=== PATIENT | female | born 1985 | race Hispanic/Latino ===

== ENCOUNTER 2017-07-14 02:44 | Emergency (ER) | payer BC, SELFPAY ==
[2017-07-14] MEDS ORDERED: HYDROcodone/Acetaminophen 5/325 mg Tablet ONE ×2 (03:02→05:46)
[2017-07-14] MEDS ORDERED: Lidocaine 1% (PF) 30 ML VIAL ONE (05:47)
[2017-07-14] MEDS ORDERED: Adacel (T-DAP) 0.5 ML VIAL ONE (07:39)
[2017-07-14] MEDS ORDERED: Bacitracin Zinc 1 Packet ONE (07:46)
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
== END 2017-07-14 08:23 | disposition home or self-care (01) ==
LOC: ERS 02:44
DX: S01.01XA Laceration without foreign body of scalp, initial encounter (principal); Y04.0XXA Assault by unarmed brawl or fight, initial encounter
CPT/HCPCS: 12002; 70450; 72125; 81025; 90471; 90715; J2001

== ENCOUNTER 2017-07-29 18:40 | Emergency (ER) | payer SELFPAY | END 2017-07-29 22:40 | disposition left against medical advice (07) | LOC: ERS 18:40 | DX: Z53.21 Procedure and treatment not carried out due to patient leaving prior to being seen by health care provider (principal) ==

== ENCOUNTER 2017-12-04 12:18 | Emergency (ER) | payer SELFPAY ==
[2017-12-04] MEDS ORDERED: Ketorolac Tromethamine 30 MG/ML VIAL ONE (13:26)
[2017-12-04] MEDS ORDERED: Cyclobenzaprine 10 MG TAB ONE (13:26)
== END 2017-12-04 13:53 | disposition home or self-care (01) ==
LOC: ERS 12:18
DX: M54.2 Cervicalgia (principal); Z87.891 Personal history of nicotine dependence
CPT/HCPCS: 96372; J1885

== ENCOUNTER 2018-02-01 09:15 | Emergency (ER) | payer SELFPAY ==
[2018-02-01] MEDS ORDERED: Ibuprofen 800 MG TAB ONE (09:37)
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
== END 2018-02-01 10:29 | disposition home or self-care (01) ==
LOC: ERS 09:15
DX: S93.401A Sprain of unspecified ligament of right ankle, initial encounter (principal); Z87.891 Personal history of nicotine dependence; W10.9XXA Fall (on) (from) unspecified stairs and steps, initial encounter
CPT/HCPCS: 29125

== ENCOUNTER 2018-05-16 09:31 | Emergency (ER) | payer SELFPAY | END 2018-05-16 10:11 | disposition home or self-care (01) | LOC: ERS 09:31 | DX: J06.9 Acute upper respiratory infection, unspecified (principal) | CPT/HCPCS: 99282 ==

== ENCOUNTER 2018-06-16 08:55 | Emergency (ER) | payer OTHER, SELFPAY ==
[2018-06-16 09:51] LABS: #Basophils 0.1 thou/uL (0.0-0.2); #Eosinphils 0.4 thou/uL (0.0-0.7); #Lymphocytes 3.8 thou/uL (1.20-3.40); #Monocytes 0.6 thou/uL (0.11-0.59); #Neutrophils 5.7 thou/uL (1.40-6.50); %Basophils 1.2 % (0.0-1.0); %Eosinophils 3.9 % (0.0-10.0); %Lymphocytes 35.7 % (21.0-51.0); %Monocytes 5.7 % (0.0-10.0); %Neutrophils 53.5 % (42.0-75.0); Hemoglobin 13.5 g/dL (12.0-16.0); Mean Corpuscular HGB CONC 32.7 g/dL (32.0-36.0); Mean Corpuscular Hemoglobin 29.3 pg (27.0-31.0); Mean Corpuscular Volume 89.5 fL (78.0-98.0); Mean Platelet Volume 8.3 fL (7.4-10.4); Platelet Count 371 thou/uL (130-400); Red Blood Cell (RBC) Count 4.61 mill/uL (4.20-5.40); White Blood Cell (WBC) Count 10.7 thou/uL (4.8-10.8)
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
[2018-06-16] MEDS ORDERED: Acetaminophen 500 MG TAB ONE (10:08)
[2018-06-16 10:11] LABS: BHCG - Serum Negative (NEGATIVE); Pregs Control Background? CLEAR/WHITE (CLR/WHITE); Pregs Control Bar Appear? YES (CONTROL BAR)
[2018-06-16 10:13] LABS: ALT (SGPT) 36 U/L (8-55); AST (SGOT) 16 U/L (5-34); Albumin 4.4 g/dL (3.5-5.0); Alkaline Phosphatase 97 U/L (40-150); Anion Gap 14 mmol/L (10-20); BUN (Urea Nitrogen) 10 mg/dL (7.0-18.7); Bilirubin, Total 0.2 mg/dL (0.2-1.2); Calc. Creatinine Clearance 0 mL/min (70-130); Calcium 9.5 mg/dL (7.8-10.44); Carbon Dioxide 20 mmol/L (22-29); Chloride 105 mmol/L (98-107); Estimated GFR-MDRD Greater than 90; Globulin 3.2 g/dL (2.4-3.5); Glucose 106 mg/dL (70-105); Potassium 3.9 mmol/L (3.5-5.1); Protein, Total 7.6 g/dL (6.0-8.3); Sodium 135 mmol/L (136-145)
[2018-06-16] MEDS ORDERED: Ketorolac Tromethamine 60 MG/2 ML VIAL ONE (10:16)
== END 2018-06-16 10:35 | disposition home or self-care (01) ==
LOC: ERS 08:55
DX: M54.2 Cervicalgia (principal); V89.2XXA Person injured in unspecified motor-vehicle accident, traffic, initial encounter
CPT/HCPCS: 36415; 70450; 71045; 72125; 80053; 84703; 85025; 96372; J1885

== ENCOUNTER 2018-10-17 10:50 | Emergency (ER) | payer SELFPAY | END 2018-10-17 11:52 | disposition home or self-care (01) | LOC: ERS 10:50 | DX: J06.9 Acute upper respiratory infection, unspecified (principal); H69.82 Other specified disorders of Eustachian tube, left ear | CPT/HCPCS: 99282 ==

== ENCOUNTER 2018-10-22 22:31 | Emergency (ER) | payer SELFPAY ==
[2018-10-22 23:27] LABS: #Basophils 0.1 thou/uL (0.0-0.2); #Eosinphils 0.4 thou/uL (0.0-0.7); #Lymphocytes 4.9 thou/uL (1.20-3.40); #Monocytes 0.8 thou/uL (0.11-0.59); #Neutrophils 4.2 thou/uL (1.40-6.50); %Basophils 0.5 % (0.0-1.0); %Eosinophils 3.8 % (0.0-10.0); %Lymphocytes 47.3 % (21.0-51.0); %Monocytes 7.7 % (0.0-10.0); %Neutrophils 40.7 % (42.0-75.0); Hemoglobin 12.5 g/dL (12.0-16.0); Mean Corpuscular HGB CONC 33.3 g/dL (32.0-36.0); Mean Corpuscular Hemoglobin 29.5 pg (27.0-31.0); Mean Corpuscular Volume 88.5 fL (78.0-98.0); Mean Platelet Volume 8.2 fL (7.4-10.4); Platelet Count 390 thou/uL (130-400); RBC Distribution Width 11.7 % (11.5-14.5); Red Blood Cell (RBC) Count 4.25 mill/uL (4.20-5.40); White Blood Cell (WBC) Count 10.3 thou/uL (4.8-10.8)
[2018-10-22 23:37] LABS: ALT (SGPT) 40 U/L (8-55); AST (SGOT) 24 U/L (5-34); Albumin 4.1 g/dL (3.5-5.0); Alkaline Phosphatase 90 U/L (40-150); Anion Gap 15 mmol/L (10-20); BUN (Urea Nitrogen) 9 mg/dL (7.0-18.7); Bilirubin, Total 0.2 mg/dL (0.2-1.2); Calc. Creatinine Clearance 0 mL/min (70-130); Calcium 9.2 mg/dL (7.8-10.44); Carbon Dioxide 25 mmol/L (22-29); Chloride 104 mmol/L (98-107); Estimated GFR-MDRD Greater than 90; Globulin 3.1 g/dL (2.4-3.5); Glucose 121 mg/dL (70-105); Potassium 3.6 mmol/L (3.5-5.1); Protein, Total 7.2 g/dL (6.0-8.3); Sodium 140 mmol/L (136-145)
== END 2018-10-23 00:19 | disposition home or self-care (01) ==
LOC: ERS 22:31
DX: J06.9 Acute upper respiratory infection, unspecified (principal); R04.0 Epistaxis; R11.10 Vomiting, unspecified
CPT/HCPCS: 36415; 80053; 85025; 99283

== ENCOUNTER 2018-11-04 21:37 | Emergency (ER) | payer SELFPAY ==
--- NOTE | 2018-11-04 22:06 | RAD ---
FEXAM: Right hand radiographs 3 views PROVIDED CLINICAL HISTORY: Pain FINDINGS: Comparison 07/14/2017. There is no evidence for fracture or other acute osseous abnormality. Alignmen t appears anatomic. Joint spaces appear preserved. Stable appearance of fifth metacarpal likely seque la of prior trauma. IMPRESSION: No evidence for an acute osseous abnormality. If there is persistent clinical concern, conservative m anagement and follow-up imaging advised.
== END 2018-11-04 22:19 | disposition home or self-care (01) ==
LOC: ERS 21:37
DX: M65.4 Radial styloid tenosynovitis [de Quervain] (principal)

== ENCOUNTER 2018-11-30 08:00 | Emergency (ER) | payer SELFPAY | END 2018-11-30 08:30 | disposition home or self-care (01) | LOC: ERS 08:00 | DX: R21 Rash and other nonspecific skin eruption (principal) | CPT/HCPCS: 99282 ==

== ENCOUNTER 2019-04-14 21:29 | Emergency (ER) | payer SELFPAY ==
[2019-04-14] MEDS ORDERED: Ondansetron ODT 8 MG TAB ONE (21:59)
== END 2019-04-14 22:06 | disposition home or self-care (01) ==
LOC: ERS 21:29
DX: R11.2 Nausea with vomiting, unspecified (principal); R19.7 Diarrhea, unspecified; F17.210 Nicotine dependence, cigarettes, uncomplicated
CPT/HCPCS: 99283

== ENCOUNTER 2019-07-06 12:36 | Emergency (ER) | payer OTHER, SELFPAY | END 2019-07-06 15:31 | disposition home or self-care (01) | LOC: ERS 12:36 | DX: J06.9 Acute upper respiratory infection, unspecified (principal) | CPT/HCPCS: 99283 ==

== ENCOUNTER 2020-05-18 09:16 | Emergency (ER) | payer OTHER, SELFPAY ==
[2020-05-18 19:04] LABS: SARS-CoV-2 MS2 Positive; SARS-CoV-2 N Gene Negative; SARS-CoV-2 S Gene Negative; SARS-CoV-2 by NAA Not Detected (NotDetected); SARS-CoV-2 orf1ab Negative
== END 2020-05-18 09:55 | disposition home or self-care (01) ==
LOC: ERS 09:16
DX: Z20.828 Contact with and (suspected) exposure to other viral communicable diseases (principal)
CPT/HCPCS: 87635; 99283; U0003

== ENCOUNTER 2021-02-04 03:10 | Emergency (ER) | payer OTHER, SELFPAY ==
[2021-02-04] MEDS ORDERED: Mag-Al 1200 mg/1200 mg/30 ML UDCUP ONE (03:30)
[2021-02-04] MEDS ORDERED: Lidocaine Viscous Sol 2% 15 ml UD Cup ONE (03:30)
[2021-02-04] MEDS ORDERED: Ondansetron PF 4 MG/2 ML Vial ONE ×2 (03:32→04:33)
[2021-02-04] MEDS ORDERED: Ondansetron ODT 4 MG TAB ONE (03:32)
[2021-02-04 03:56] LABS: #Basophils 0.1 thou/uL (0.0-0.2); #Eosinphils 0.4 thou/uL (0.0-0.7); #Lymphocytes 5.7 thou/uL (1.20-3.40); #Monocytes 0.9 thou/uL (0.11-0.59); #Neutrophils 9.2 thou/uL (1.40-6.50); %Basophils 0.7 % (0.0-1.0); %Eosinophils 2.3 % (0.0-10.0); %Monocytes 5.3 % (0.0-10.0); %Neutrophils 56.7 % (42.0-75.0); Hemoglobin 14.5 g/dL (12.0-16.0); Mean Corpuscular HGB CONC 35.2 g/dL (32.0-36.0); Mean Corpuscular Volume 88.2 fL (78.0-98.0); Mean Platelet Volume 8.7 fL (7.4-10.4); Platelet Count 367 thou/uL (130-400); RBC Distribution Width 11.7 % (11.5-14.5); Red Blood Cell (RBC) Count 4.67 mill/uL (4.20-5.40); White Blood Cell (WBC) Count 16.2 thou/uL (4.8-10.8)
[2021-02-04 04:20] LABS: ALT (SGPT) 222 U/L (8-55); AST (SGOT) 130 U/L (5-34); Albumin 4.3 g/dL (3.5-5.0); Alkaline Phosphatase 180 U/L (40-110); Anion Gap 17 mmol/L (10-20); BUN (Urea Nitrogen) 9 mg/dL (7.0-18.7); Bilirubin, Total 0.3 mg/dL (0.2-1.2); Calc. Creatinine Clearance 0 mL/min (70-130); Calcium 9.3 mg/dL (7.8-10.44); Carbon Dioxide 21 mmol/L (22-29); Chloride 99 mmol/L (98-107); Globulin 3.9 g/dL (2.4-3.5); Glucose 275 mg/dL (70-105); Lipase 16 U/L (8-78); Potassium 3.9 mmol/L (3.5-5.1); Protein, Total 8.2 g/dL (6.0-8.3); Sodium 133 mmol/L (136-145)
[2021-02-04 04:23] LABS: BHCG - Serum Negative (NEGATIVE); Pregs Control Background? CLEAR/WHITE (CLR/WHITE); Pregs Control Bar Appear? YES (CONTROL BAR)
[2021-02-04] MEDS ORDERED: Morphine 4 MG/ML VIAL ONE (04:31)
[2021-02-04 04:41] LABS: Bacteria/HPF None Seen HPF (None Seen); Bilirubin Negative (Negative); Blood, Urine 1+ (Negative); Clarity Clear (Clear); Glucose, Urine (Dipstick) Greater than 1000 mg/dL (Negative); Ketone, Urine Negative (Negative); Leukocyte Negative Leu/uL (Negative); Nitrite Negative (Negative); Protein, Urine (Dipstick) 20 mg/dL (Neg-Trace); RBC/HPF 0-3 HPF (0-3); Specific Gravity, Urine 1.017 (1.002-1.036); Squamous Epithelial 0-3 HPF (0-3); Urobilinogen Normal mg/dL (Less than 2); WBC/HPF 0-3 HPF (0-3); pH, Urine 6.5 (5.0-9.0)
[2021-02-04] MEDS ORDERED: Iopamidol-370 76% 500 ML 1 ML ONE (09:44)
== END 2021-02-04 06:54 | disposition home or self-care (01) ==
LOC: ERS 03:10
DX: R10.13 Epigastric pain (principal); R11.0 Nausea
CPT/HCPCS: 36415; 74177; 80053; 81003; 81015; 83690; 84703; 85025; 96374; J2270; J2405; Q0162; Q9967

== ENCOUNTER 2021-02-11 19:18 | Inpatient (IN) | payer OTHER ==
[2021-02-12 01:50] VITALS: BMI 39.0
[2021-02-13 19:51] VITALS: TEMP 98.3
[2021-02-14 07:30] VITALS: BP 116/74
== END 2021-02-14 10:13 | disposition home or self-care (01) | DRG 603 ==
LOC: ERS 19:18 → ERHOLD 23:20 → OBSVTOIN 02-12 07:34 → T4-A 02-12 14:34
PROVIDERS: ADMIT Internal Medicine; ATTEND Internal Medicine
DX: L03.116 Cellulitis of left lower limb (principal); E11.9 Type 2 diabetes mellitus without complications; Z20.822 Contact with and (suspected) exposure to COVID-19; E66.9 Obesity, unspecified; R74.8 Abnormal levels of other serum enzymes; Z90.49 Acquired absence of other specified parts of digestive tract; Z68.39 Body mass index [BMI] 39.0-39.9, adult
CPT/HCPCS: 36415; 36416; 76705; 80048; 80053; 80076; 80202; 83036; 85025; 96365; 96375; G0378; J1650; J1815; J1885; J3370; J3490; J7030; U0003; U0005